=== PATIENT | male | born 1965 | race Caucasian/White ===

== ENCOUNTER 2017-01-16 06:07 | Day surgery (SDC) | payer OTHER ==
[~2017-01-16] VITALS: Ht 180.3 cm; Wt 85.0 kg
[~2017-01-16 06:07] MED LIST: BUPIVACAINE/PF-EPI 0.5% 1:200K ONE
[2017-01-16] MEDS ORDERED: LACTATED RINGERS 1,000 ML IV SCH (06:42)
[2017-01-16 06:43] VITALS: BP 118/77
[2017-01-16] MEDS ORDERED: PLEASE ENTER HEIGHT AND WEIGHT MC SCH (07:00)
[2017-01-16 07:03] VITALS: BP 118/77
[2017-01-16] MEDS ORDERED: naproxen (07:14)
[2017-01-16] MEDS ORDERED: FENTANYL PF 250 MCG/5ML ONE (07:20)
[2017-01-16] MEDS ORDERED: MIDAZOLAM 1 MG/ML, 2ML ONE (07:20)
[2017-01-16] MEDS ORDERED: PROPOFOL 10 MG/ML, 20ML ONE (07:22)
[2017-01-16] MEDS ORDERED: ONDANSETRON 2MG/ML, 2ML ONE (07:22)
[2017-01-16] MEDS ORDERED: KETOROLAC 30 MG/1 ML ONE (07:22)
[2017-01-16] MEDS ORDERED: DEXAMETHASONE 4 MG/ML, 1ML ONE (07:22)
[2017-01-16] MEDS ORDERED: CEFAZOLIN 1,000 MG ONE (07:22)
[2017-01-16] MEDS ORDERED: ONDANSETRON 2MG/ML, 2ML IVPush PRN (08:00)
[2017-01-16] MEDS ORDERED: METOPROLOL 1 MG/ML, 5ML IV PRN (08:00)
[2017-01-16] MEDS ORDERED: HYDROcodone/APAP 7.5-325MG/15ML UDC PO PRN (08:00)
[2017-01-16] MEDS ORDERED: PROMETHAZINE 25 MG/ML, 1ML IV PRN (08:00)
[2017-01-16] MEDS ORDERED: ACETAMINOPHEN 325 MG TABLET PO PRN (08:00)
[2017-01-16] MEDS ORDERED: hydrALAzine 20 MG/ML, 1ML IV PRN (08:00)
[2017-01-16] MEDS ORDERED: EPHEDRINE 50 MG/ML, 1ML IVPush PRN (08:00)
[2017-01-16] MEDS ORDERED: MEPERIDINE/PF 25MG/0.5ML IVPush PRN (08:00)
[2017-01-16] MEDS ORDERED: OXYcodone 5 MG/5 ML ORAL.SOL UDC PO PRN (08:00)
[2017-01-16] MEDS ORDERED: MIDAZOLAM 1 MG/ML, 2ML IV PRN (08:00)
[2017-01-16] MEDS ORDERED: LABETALOL 5MG/ML, 20ML IV PRN (08:00)
[2017-01-16] MEDS ORDERED: ALBUTEROL SULFATE 2.5 MG/3 ML NPPB PRN (08:00)
[2017-01-16] MEDS ORDERED: ALBUTEROL/IPRATROPIUM 2.5MG/0.5MG, 3 ML NPPB PRN (08:00)
[2017-01-16] MEDS ORDERED: BUPIVACAINE/PF-EPI 0.5% 1:200K INFIL ONE (09:05)
[2017-01-16] MEDS ORDERED: OXYcodone 5 MG/5 ML ORAL.SOL UDC ONE (09:21)
[2017-01-16] MEDS ORDERED: FENTANYL PF 100 MCG/2ML ONE (09:21)
[2017-01-16] MEDS: FENTANYL PF 100 MCG/2ML IV PRN ×2 (09:23→09:30)
[2017-01-16] MEDS ORDERED: HYDROmorphone 2 MG/ML, 1ML ONE (09:35)
[2017-01-16] MEDS: HYDROmorphone 1 MG/ML, 1ML IV PRN ×2 (09:37→09:50)
== END 2017-01-16 11:30 ==
LOC: OUT 06:07
PROVIDERS: ATTEND Surgery
DX: K40.90 Unilateral inguinal hernia, without obstruction or gangrene, not specified as recurrent (principal); Z88.0 Allergy status to penicillin
CPT/HCPCS: 49505; C1781; J0690; J1100; J1170; J1885; J2250; J2405; J2704; J3010

== ENCOUNTER 2017-01-20 15:45 | Emergency (ER) | payer OTHER ==
[~2017-01-20] VITALS: Ht 180.3 cm; Wt 84.0 kg
[~2017-01-20 15:45] MED LIST changes: -BUPIVACAINE/PF-EPI 0.5% 1:200K ONE; +naproxen
[2017-01-20 16:27] LABS: ASPARTATE AMINO TRANSFERASE 58 U/L (15-37); BLOOD UREA NITROGEN 15 mg/dL (7-18)
[2017-01-20 17:00] VITALS: BP 120/78
== END 2017-01-20 17:56 | disposition home or self-care (01) ==
LOC: ED 16:01
DX: K94.19 Other complications of enterostomy (principal); R19.09 Other intra-abdominal and pelvic swelling, mass and lump
CPT/HCPCS: 36415; 76857; 76870; 80053; 85025; 85610; 85730; 99285

== ENCOUNTER → 2017-07-04 | Outpatient (CLI) | payer OTHER | LOC: RAD 08:23 | PROVIDERS: ATTEND Physician Assistant Medical | DX: I86.1 Scrotal varices (principal); Z98.890 Other specified postprocedural states | CPT/HCPCS: 76870 ==

== ENCOUNTER → 2018-02-19 | Outpatient (CLI) | payer OTHER | END | disposition home or self-care (01) | LOC: RAD 09:06 | PROVIDERS: ATTEND Family Medicine Adult Medicine | DX: N43.3 Hydrocele, unspecified (principal); Z88.0 Allergy status to penicillin; Z87.891 Personal history of nicotine dependence | CPT/HCPCS: 76870; 93975 ==